=== PATIENT | female | born 1970 | race Caucasian/White ===

== ENCOUNTER 2024-09-08 16:57 | Emergency (ER) | payer OTHER, SELFPAY ==
--- NOTE | ~2024-09-08 | XR_ITS ---
CHEST RADIOGRAPH CLINICAL HISTORY: cough x1 week . COMPARISON: None available TECHNIQUE: Single portable view of the chest. FINDINGS The cardiomediastinal silhouette is unremarkable. The lungs are clear. Visualized osseous structures and soft tissues are unremarkable. IMPRESSION: No focal infiltrate or effusion. Reviewed, dictated and finalized at location A. IZATION REVIEW RN
[2024-09-08 17:38] VITALS: BP 147/94; PULSE 80; RESP 18; TEMP 36.6; O2SAT 100
--- NOTE | 2024-09-08 17:39 | PC.NURSE ---
covid culture sent to lab
[2024-09-08 18:15] LABS: Influenza A QL RT-PCR Positive (Negative); Influenza B QL RT-PCR Negative (Negative); RSV RNA, RT-PCR Negative (Negative); SARS-CoV-2 RNA PCR Negative (Negative)
--- OUTSIDE RECORDS SUMMARY | 2024-09-08 18:17 | XMS_ITS | Clinical Summary ---
Author Organization [facility] Address [address] [place] [id number] Care Team Providers Care Tar Man Name Role Phone Carmela Blanca MD Primary Care Provider + Allergies No known active allergies Medications Medication Sig Dispensed Refills Start Date End Date Status CALCIUM CITRATE-VITAMIN D PO Take 1,500 mg by mouth. Active VITAMIN D, CHOLECALCIFEROL, PO Take 2,000 mg by mouth. Active Active Problems No known active problems Immunizations Name Administration Dates Next Due Influenza, MDCK, quadrivalent, PF 06/03/2021 Influenza, split virus, quadrivalent, PF 020 Influenza, split virus, trivalent 06/03/2021 Tdap 03/08/2020 Tuberculin Skin Test Unspecified Formulation Medical History Medical History Date Comments Malignant neoplasm (CMD) Osteopenia Skin cancer Family History Medical History Relation Comments Diabetes Father Hypertension Father Cancer Mother Relation Status Comments Father Alive Mother Alive Social History Tobacco Use Types Packs/Day Years Used Date Smoking Tobacco: Never Smokeless Tobacco: Never Inadequate Housing Answer Date Recorded Social Determinants: Housing (Overall Score Help er) 0 06/07/2021 Sex and Gender Information Value Date Recorded Sex Assigned at Not on file Gender Identity Not on file Sexual Orientation Not on file Obstetrics History Last Filed Vital Signs Vital Sign Reading Time Taken Comments Blood Pressure 110/70 06/07/2021 4:59 PM DOPE SPRAYER Pulse 70 06/07/2021 4:59 PM DOPE SPRAYER Temperature 37.2 C (98.9 F) 06/07/2021 4:59 PM DOPE SPRAYER Respiratory Rate 16 06/07/2021 4:59 PM DOPE SPRAYER Oxygen Saturation 100% 06/07/2021 4:59 PM DOPE SPRAYER Inhaled Oxygen Concentration - - Weight 90.5 kg (199 lb 6.5 oz) 06/07/2021 4:59 P M DOPE SPRAYER Height 172.7 cm (5' 8 ) 06/07/2021 4:59 PM DOPE SPRAYER Body Mass Index 30.32 06/07/2021 4:59 PM DOPE SPRAYER Plan of Treatment Health Maintenance Due Date Last Done Comments Depression Screening 1980 Hepatitis B Vaccine (1 of 3 - 19+ 3-dose series) 12/28/1987 Breast Cancer Screening 2008 CT Colonography 2013 Cologuard 2013 Colonoscopy 2013 Colorectal Cancer Screen 2013 Fecal Occult Blood 2013 Sigmoidoscopy 2013 Pneumococcal Vaccine 50+ (1 of 1 - PCV) 2018 Shingles Vaccine (1 of 2) 2018 COVID-19 Vaccine (2023-2 5 season) 2024 06/03/2021, 09/08/2020, 08/18/2020 Influenza Vaccine (#1) 2024 , 06/03/2021, 03/08/2020 DTaP/Tdap/Td Vaccine (2 - Td or Tdap) 03/08/2030 03/08/2020 HPV Vaccine Aged Out No longer eligi ble based on patient's age to complete this topic Hepatitis A Vaccine Aged Out No longe r eligible based on patient's age to complete this topic Meningococcal Serogroup B Vaccine Aged Out No longer eligible b ased on patient's age to complete this topic Meningococcal Vaccine Aged Out No madan riccardo eligible based on patient's age to complete this topic Pneumococcal Vaccine 0-49 Aged Out No longer eligible based on patient's age to complete this topic Care Teams Tar Man Relationship Specialty Start Date End Date Carmela Blanca MD [address] [place] [address] [facility] - General 06/07/21
--- OUTSIDE RECORDS SUMMARY | 2024-09-08 18:17 | XMS_ITS | Patient Health Summary ---
Author Organization [facility] [employer] Address [address] [address] Care Team Providers Care Frame Polisher Name Role Phone April Reynoso DO Primary Care Provider [phone] Note from [facility],non-owned Affiliates and Associated Physician Practices is amultiple site organization consisting of ambulatory clinics and hospital sitesin [place], [place], [place] and [place]. This disclosure is being madepursuant to the Care Everywhere program and may not contain all information available regarding this patient. Last updated 18.[facility] [employer] Social History Tobacco Use Types Packs/Day Years Used Date Smoking Tobacco: Never Assessed Sex and Gender Information Value Date Recorded Sex Assigned at Not on file Gender Identity Not on file Sexual Orientation Not on file Procedures * BILIRUBIN DIRECT(Performed 07/02/2023) Performed for Need for prophylactic chemotherapy * CBC W AUTO DIFFERENTIAL(Performed 07/02/2023) Performed for Need for prophylactic chemotherapy * COMPREHENSIVE METABOLIC PANEL(Performed 07/02/2023) Performed for Need for prophylactic chemotherapy * HIV-1 HIV-2 ANTIBODY + HIV P24 AG PANEL(Performed 07/02/2023) Performed for Need for prophylactic chemotherapy * HEPATITIS B CORE ANTIBODY IGM(Performed 07/02/2023) Performed for Need for prophylactic chemotherapy * HEPATITIS B SURFACE ANTIGEN W RFLX CONFIRMATION(Performed 07/02/2023) Performed for Need for prophylactic chemotherapy * QUANTIFERON-TB GOLD PLUS 4-TUBE(Performed 07/02/2023) Performed for Need for prophylactic chemotherapy * HEPATITIS C ANTIBODY(Performed 07/02/2023) Performed for Need for prophylactic chemotherapy Results * QUANTIFERON-TB GOLD PLUS 4-TUBE (07/02/2023 11:19 AM SYSTEMS SPECIALIST) QuantiFERON NIL 0.02 IU/mL 9:42 AM [facility] [employer] ([facility]) Comment: Performed By: [employer] [address] [place] [address] Commercial Sales Consultant: Nathan Sanchez MD, PhD CLIA Number: [id number] QuantiFERON TB Gold Plus Negative Negative 07/05/2023 9:42 AM [facility] [employer] ([facility]) Comment: Interpretive Data: Quantiferon TB Gold Plus Interferon gamma release is measured for specimens from each of the four collection tubes. A qualitative result (Negative, Positive, or Indeterminate) is based on interpretation of the four values, NIL, MITOGEN minus NIL (MITOGEN-NIL), TB1 minus NIL (TB1-NIL), and TB2 minus NIL (TB2-NIL). The NIL value represents nonspecific reactivity produced by the patient specimen. The MITOGEN-NIL value serves as the positive control for the patient specimen, demonstrating successful lymphocyte activity. The TB1-NIL tube specifically detects CD4+ lymphocyte reactivity, specifically stimulated by the TB1 antigens. The TB2-NIL tube detects both CD4+ and CD8+ lymphocyte reactivity, stimulated by TB2 antigens. An overall Negative result does not completely rule out TB infection. A false-positive result in the absence of other clinical evidence of TB infection is not uncommon. Refer to: Updated Guidelines for Using Interferon Gamma Release Assays to Detect Mycobacterium tuberculosis Infection --- [place], 2010 (http://www.cdc.gov/mmwr/preview/mmwrhtml/ny1009v1.htm), for more information concerning test performance in low-prevalence populations and use in occupational screening. QuantiFERON Plus TB1 Minus NIL 0.05 0.00 - 0.34 IU/mL 07/05/2023 9:42 AM SYSTEMS SPECIALIST [employer] ([facility]) QuantiFERON Plus TB2 Minus NIL 0.05 0.00 - 0.34 IU/mL 07/05/2023 9:42 AM SYSTEMS SPECIALIST [employer] ([facility]) QuantiFERON Mitogen Minus NIL >10.00 IU/mL 07/05/2023 9:42 AM SYSTEMS SPECIALIST [facility]) Blood BLOOD SPECIMEN / Unknown Lab Venipuncture / Unknown 07/02/2023 11:19 AM SYSTEMS SPECIALIST 07/02/2023 11:27 AM SYSTEMS SPECIALIST Grace Beth Aline PHILOSOPHY FACULTY-REFINISH TECHNICIAN LAB - CHEMISTR Y ORDERABLES [facility] ([facility]) [address] [place], [place] [address] * HIV 1 & HIV 2 ANTIBODY (IN HOUSE) (07/02/2023 11:19 AM SYSTEMS SPECIALIST) Pathologist [facility] HIV1/2 Ab + P24 Ag NON-REACTI VE/NEGATIV E NON-REACTI VE/NEGATIV E 07/02/2023 12:23 PM SYSTEMS SPECIALIST [facility] Blood BLOOD SPECIMEN / Unknown Lab Venipuncture / Unknown 07/02/2023 11:19 AM SYSTEMS SPECIALIST 07/02/2023 11:27 AM SYSTEMS SPECIALIST Grace Beth Aline PHILOSOPHY FACULTY-REFINISH TECHNICIAN LAB - CHEMISTR Y ORDERABLES Performing Organization Address City/[facility]/ZIP Co de Phone Number [facility] [address] [place] [address] * CBC WITH DIFFERENTIAL (07/02/2023 11:19 AM SYSTEMS SPECIALIST) Pathologist [facility] WBC 5.8 4.0 - 10.0 x10E9/L 07/02/2023 11:38 AM [facility] RBC 4.44 3.93 - 5.22 x10E12/L 07/02/2023 11:38 AM [facility] Hemoglobin 13.3 11.2 - 15.7 gm/dL 07/02/2023 11:38 AM [facility] Hematocrit 41.1 34.1 - 44.9 % 07/02/2023 11:38 AM [facility] MCV 92.6 78.0 - 100.0 fl 07/02/2023 11:38 AM [facility] MCH 30.0 25.6 - 34.0 pg 07/02/2023 11:38 AM [facility] MCHC 32.4 32.3 - 36.5 gm/dL 07/02/2023 11:38 AM [facility] RDW 12.7 11.6 - 14.4 % 07/02/2023 11:38 AM [facility] MPV 9.5 9.4 - 12.4 fl 07/02/2023 11:38 AM [facility] Platelet Count 300 163 - 369 x10E9/L 07/02/2023 11:38 AM [facility] Neutrophils % 48.5 40.0 - 75.0 % 07/02/2023 11:38 AM [facility] Lymphocytes % 40.9 19.3 - 53.1 % 07/02/2023 11:38 AM [facility] Monocytes % 6.0 4.7 - 12.5 % 07/02/2023 11:38 AM [facility] Eosinophils % 3.6 0.7 - 7.0 % 07/02/2023 11:38 AM [facility] Basophils % 0.7 0.1 - 1.2 % 07/02/2023 11:38 AM [facility] Immature Granulocytes 0.3 0 - 0.5 % 07/02/2023 11:38 AM [facility] Neutrophil Absolute 2.83 1.56 - 6.13 x10E9/L 07/02/2023 11:38 AM [facility] Lymphocytes Absolute 2.39 1.18 - 3.74 x10E9/L 07/02/2023 11:38 AM [facility] Monocytes Absolute 0.35 0.24 - 0.86 x10E9/L 07/02/2023 11:38 AM [facility] Eosinophils Absolute 0.21 0.04 - 0.54 x10E9/L 07/02/2023 11:38 AM [facility] Basophils Absolute 0.04 0.01 - 0.08 x10E9/L 07/02/2023 11:38 AM [facility] Immature Granulocytes Absolute 0.02 0 - 0.03 x10E9/L 07/02/2023 11:38 AM [facility] nRBC Auto 0 <=0 /100 WBC 07/02/2023 11:38 AM [facility] nRBC Absolute 0.00 <=0 x10E9/L 07/02/2023 11:38 AM [facility] Blood BLOOD SPECIMEN / Unknown Lab Venipuncture / Unknown 07/02/2023 11:19 AM SYSTEMS SPECIALIST 07/02/2023 11:27 AM [facility] Grace Mireles PHILOSOPHY FACULTY-REFINISH TECHNICIAN LAB - HEMATOLO GY ORDERABLES [facility] [address], [place] [id number] [place] [address] * (ABNORMAL) COMPREHENSIVE METABOLIC PANEL (07/02/2023 11:19 AM [facility]) [facility] Signature Glucose 108 70 - 125 mg/dL 07/02/2023 11:52 AM [facility] Sodium 141 136 - 145 mmol/L 07/02/2023 11:52 AM [facility] Potassium 4.0 3.4 - 5.1 mmol/L 07/02/2023 11:52 AM [facility] Chloride 107 98 - 107 mmol/L 07/02/2023 11:52 AM [facility] CO2 28 22 - 29 mmol/L 07/02/2023 11:52 AM [facility] Calcium 9.65 8.4 - 10.2 mg/dL 07/02/2023 11:52 AM [facility] Anion Gap 10 6 - 16 mmol/L 07/02/2023 11:52 AM [facility] BUN 7.8(L) 9.8 - 20.1 mg/dL 07/02/2023 11:52 AM [facility] Creatinine 0.65 0.57 - 1.11 mg/dL 07/02/2023 11:52 AM [facility] Alkaline Phosphatase 105 40 - 150 U/L 07/02/2023 11:52 AM [facility] ALT 81(H) <=55 U/L 07/02/2023 11:52 AM [facility] AST 51(H) 5 - 34 U/L 07/02/2023 11:52 AM [facility] Protein Total 7.1 6.4 - 8.3 gm/dL 07/02/2023 11:52 AM [facility] Albumin 3.8 3.4 - 4.8 gm/dL 07/02/2023 11:52 AM [facility] Globulin Total 3.3 2.6 - 4.0 gm/dL 07/02/2023 11:52 AM [facility] Albumin/Globulin Ratio 1.2 0.9 - 1.6 07/02/2023 11:52 AM [facility] Bilirubin Total 0.4 0.2 - 1.2 mg/dL 07/02/2023 11:52 AM [facility] eGFR >90 >90 mL/min/1.7 3m2 07/02/2023 11:52 AM SYSTEMS SPECIALIST [facility] Comment:The GFR result was c alculated using the updated CKD-EPI Creatinine Equation (2020). Blood BLOOD SPECIMEN / Unknown Lab Venipuncture / Unknown 07/02/2023 11:19 AM SYSTEMS SPECIALIST 07/02/2023 11:27 AM SYSTEMS SPECIALIST Grace Mireles PHILOSOPHY FACULTY-REFINISH TECHNICIAN LAB - CHEMISTR Y ORDERABLES Performing Organization Address City/[facility] Co de Phone Number [facility] [address] [place] [address] * HEPATITIS B SURFACE ANTIGEN W RFLX CONFIRMATION (07/02/2023 11:19 AM SYSTEMS SPECIALIST) HBsAg Non Reactive Non Reactive 07/02/2023 3:06 PM SYSTEMS SPECIALIST [facility] Blood BLOOD SPECIMEN / Unknown Lab Venipuncture / Unknown 07/02/2023 11:19 AM SYSTEMS SPECIALIST 07/02/2023 11:27 AM SYSTEMS SPECIALIST Grace Mireles PHILOSOPHY FACULTY-REFINISH TECHNICIAN LAB - CHEMISTR Y ORDERABLES Performing Organization Address [facility] Co de Phone Number [facility] [address] * BILIRUBIN DIRECT (07/02/2023 11:19 AM SYSTEMS SPECIALIST) Bilirubin Direct 0.14 <=0.5 mg/dL 07/02/2023 11:52 AM SYSTEMS SPECIALIST [facility] Blood BLOOD SPECIMEN / Unknown Lab Venipuncture / Unknown 07/02/2023 11:19 AM SYSTEMS SPECIALIST 07/02/2023 11:27 AM SYSTEMS SPECIALIST Grace Mireles PHILOSOPHY FACULTY-REFINISH TECHNICIAN LAB - CHEMISTR Y ORDERABLES Performing Organization Address [facility] de Phone Number [facility] [address] [place] [address] * HEPATITIS C ANTIBODY (07/02/2023 11:19 AM SYSTEMS SPECIALIST) HCV Antibody Screen Non Reactive Non Reactive 07/02/2023 3:06 PM SYSTEMS SPECIALIST [facility] Blood BLOOD SPECIMEN / Unknown Lab Venipuncture / Unknown 07/02/2023 11:19 AM SYSTEMS SPECIALIST 07/02/2023 11:27 AM SYSTEMS SPECIALIST Narrative [facility] - 07/02/2023 3:06 PM SYSTEMS SPECIALIST Non Reactive - Antibodies to Hepatitis C virus (HCV) were not detected, result does not exclude early acute HCV infection. Non Reactive - Antibodies to Hepatitis C virus (HCV) were not detected, result does not exclude early acute HCV infection. Grace Mireles PHILOSOPHY FACULTY-REFINISH TECHNICIAN LAB - CHEMISTR Y ORDERABLES Performing Organization Address City/[facility]/ZIP Co de Phone Number [facility] [address] * HEPATITIS B CORE ANTIBODY IGM (07/02/2023 11:19 AM SYSTEMS SPECIALIST) [facility] HBc Antibody IgM Non Reactive Non Reactive 07/02/2023 3:06 PM SYSTEMS SPECIALIST [facility] Blood BLOOD SPECIMEN / Unknown Lab Venipuncture / Unknown 07/02/2023 11:19 AM SYSTEMS SPECIALIST 07/02/2023 11:27 AM SYSTEMS SPECIALIST Grace Mireles PHILOSOPHY FACULTY-REFINISH TECHNICIAN LAB - CHEMISTR Y ORDERABLES Performing Organization Address [facility] Co de Phone Number [facility] [address] Care Teams Frame Polisher Relationship Specialty Start Date End Date April Reynoso DO PCP - General Family Medicine 07/02/23
--- OUTSIDE RECORDS SUMMARY | 2024-09-08 18:17 | XMS_ITS ---
Author Organization [facility] Address [address] [place] [address] Care Team Providers Care Manager Demand Name Role Phone Unavailable Unavailable Unavailable Surgery Details Not on file Complications Check Surgery Details section. Procedure Estimated Blood Loss Check Surgery Details section. Procedure Findings Check Surgery Details section. Procedure Specimens Taken Check Surgery Details section.
--- OUTSIDE RECORDS SUMMARY | 2024-09-08 18:17 | XMS_ITS | CCD ---
Author Organization [facility] Address [address] [place] [address] Care Team Providers Care Packaging Clerk Name Role Phone Unavailable Primary Care Provider Unavailabl e Social History Tobacco Use Types Packs/Day Years Used Date Smoking Tobacco: Never Assessed Comments Unknown Sex and Gender Information Value Date Recorded Sex Assigned at Not on file Legal Sex Unknown 11/30/2020 8:52 PM PDT Gender Identity Not on file Sexual Orientation Not on file Plan of Treatment Not on file
--- OUTSIDE RECORDS SUMMARY | 2024-09-08 18:17 | XMS_ITS | Referral Summary ---
Author Organization [facility] Address [address] [place] [address] Care Team Providers Care Highway Maintainer Name Role Phone Carmela Blanca MD Primary [...] Tdap 03/08/2020 Tuberculin Skin Test Unspecified Formulation Social History Tobacco Use Types Packs/Day Years Used Date Smoking Tobacco: Never Smokeless Tobacco: Never Inadequate Housing Answer Date Recorded Social Determinants: Housing (Overall Score Help er) 0 06/07/2021 Sex and Gender Information Value Date Recorded Sex Assigned at Not on file Gender Identity Not on file Sexual Orientation Not on file Last Filed Vital Signs Vital Sign Reading Time Taken Comments Blood Pressure 110/70 06/07/2021 4:59 PM CONTRACTS LAW PROFESSOR Pulse 70 06/07/2021 4:59 PM CONTRACTS LAW PROFESSOR Temperature 37.2 C (98.9 F) 06/07/2021 4:59 PM CONTRACTS LAW PROFESSOR Respiratory Rate 16 06/07/2021 4:59 PM CONTRACTS LAW PROFESSOR Oxygen Saturation 100% 06/07/2021 4:59 PM CONTRACTS LAW PROFESSOR Inhaled Oxygen Concentration - - Weight 90.5 kg (199 lb 6.5 oz) 06/07/2021 4:59 P M CONTRACTS LAW PROFESSOR Height 172.7 cm (5' 8 ) 06/07/2021 4:59 PM CONTRACTS LAW PROFESSOR Body Mass Index 30.32 06/07/2021 4:59 PM CONTRACTS LAW PROFESSOR Plan of Treatment Not on file Care Teams Highway Maintainer Relationship Specialty Start Date End Date Carmela Blacna MD [address] [place] [address] PCP - General 06/07/21
--- OUTSIDE RECORDS SUMMARY | 2024-09-08 18:17 | XMS_ITS | Clinical Summary ---
Author Organization [facility] Address [address] [place] [address] Care Team Providers Care Gluer And Slicer Hand Name Role Phone Unavailable Primary Care Provider [...]
--- OUTSIDE RECORDS SUMMARY | 2024-09-08 18:17 | XMS_ITS | Referral Summary ---
Author Organization [facility] Address [address] [place] [address] Care Team Providers Care Entry Driver Operator Name Role Phone Unavailable Primary Care Provider [...]
--- OUTSIDE RECORDS SUMMARY | 2024-09-08 18:17 | XMS_ITS | Encounter Summary ---
Author Organization [facility] [place] [address] [place] [address] Care Team Providers Care Supply Chain Planner Name Role Phone Unavailable Primary Care Provider Unavailabl e Prior Encounters Date Type Department Care Team Description 08/18/2019 Converted 13x Documents [facility] [address], [address] [place] [address] <No scans attached> 08/18/2019 Converted 13x Documents [facility] [address], [address] [place] [address] <No scans attached> 08/18/2019 Converted CPS Chart Documents [facility] [address], [address] [place] [address] <No scans attached> 08/18/2019 Converted CPS Chart Documents [facility] [address] , [facility] [address] [place] [address] <No scans attached> 08/18/2019 Converted 13x Documents [facility] [address] , [facility] [address] [place] [address] <No scans attached> Plan of Treatment Not on file Procedures Procedure Name Priority Date/Time Associated Diagnosis Comments PLAN VISIT FEE Routine 02/25/2014 2:00 AM CDT 30 EXTRACTION, ERUPTED TOOTH REQUIRING REMOVAL OF BONE AND/OR SECTIONING OF TOOTH Routine 02/17/2014 2:00 AM CDT 15 EXTRACTION, ERUPTED TOOTH REQUIRING REMOVAL OF BONE AND/OR SECTIONING OF TOOTH Routine 02/17/2014 2:00 AM CDT 29 DO COMPOSITE FILLING Routine 02/18/20 14 2:00 AM CDT LIMITED ORAL EVALUATION - PROBLEM FOCUSED Routine 02/09/2014 2:00 AM CDT 30 INTERNAL ROOT REPAIR OF PERFORATION DEFECTS Routine 02/06/2014 2:00 AM CDT 30 RETREATMENT OF PREVIOUS ROOT CANAL THERAPY - MOLAR Routine 02/06/2014 2:00 AM CDT 30 POST REMOVAL Routine 02/06/2014 2:00 AM CDT 30 PULP VITALITY TESTS Routine 4 2:00 AM CDT 14 CEMENT CROWN Routine 02/03/2014 2:00 AM CDT 13 CEMENT CROWN Routine 02/03/2014 2:00 AM CDT 12 CEMENT CROWN Routine 02/03/2014 2:00 AM CDT 11 CEMENT CROWN Routine 02/03/2014 2:00 AM CDT ADDITIONAL X-RAY Routine 02/03/2014 2:00 AM CDT SINGLE X-RAY Routine 02/03/2014 2:00 AM CDT PLAN VISIT FEE Routine 02/03/2014 2:00 AM CDT CANCELLED APPOINTMENT Routine 01/26/2014 2:00 AM CDT 11 [facility] MADE CROWN ANT Routine 01/15/2014 2:00 AM CDT 13 PONTIC - PFG - POST Routine 4 2:00 AM CDT 14 RETAINER CROWN - PFG - POST Routine 01/15/2014 2:00 AM CDT 12 RETAINER CROWN - PFG - POST Routine 01/15/2014 2:00 AM CDT 11 PREFABRICATED POST AND CORE IN ADDITION TO CROWN Routine 01/15/2014 2:00 AM CDT 14 CORE BUILDUP, INCLUDING ANY PINS WHEN REQUIRED Routine 01/15/2014 2:00 AM CDT 12 CORE BUILDUP, INCLUDING ANY PINS WHEN REQUIRED Routine 01/15/2014 2:00 AM CDT 14 PORC MARGIN UPGRADE Routine 4 2:00 AM CDT ADDITIONAL X-RAY Routine 01/15/2014 2:00 AM CDT SINGLE X-RAY Routine 01/15/2014 2:00 AM CDT 18 CEMENT CROWN Routine 12/24/2013 2:00 AM CDT ADDITIONAL X-RAY Routine 12/24/2013 2:00 AM CDT SINGLE X-RAY Routine 12/24/2013 2:00 AM CDT 18 CORE BUILDUP, INCLUDING ANY PINS WHEN REQUIRED Routine 12/02/2013 2:00 AM CDT 18 CROWN PFG POST Routine 12/02/2013 2:0 0 AM CDT 18 PORC MARGIN UPGRADE Routine 4 2:00 AM CDT 20 DO COMPOSITE FILLING Routine 12/03/19 14 2:00 AM CDT 21 O COMPOSITE FILLING Routine 4 2:00 AM CDT 4 LIMITED ORAL EVALUATION - PROBLEM FOCUSED Routine 11/20/2013 2:00 AM CDT ADDITIONAL X-RAY Routine 11/17/2013 2:00 AM CDT SINGLE X-RAY Routine 11/17/2013 2:00 AM CDT 4 PONTIC - PFG - POST Routine 10/27/2013 2:00 AM CDT 3 PONTIC - PFG - POST Routine 10/27/2013 2:00 AM CDT 5 RETAINER CROWN - PFG - POST Routine 10/27/2013 2:00 AM CDT 2 RETAINER CROWN - PFG - POST Routine 10/27/2013 2:00 AM CDT 2 CORE BUILDUP, INCLUDING ANY PINS WHEN REQUIRED Routine 10/27/2013 2:00 AM CDT 2 ENDODONTIC THERAPY, MOLAR TOOTH (EXCLUDING FINAL ADVENTISM) Routine 10/27/2013 2:00 AM CDT 5 CORE BUILDUP, INCLUDING ANY PINS WHEN REQUIRED Routine 10/27/2013 2:00 AM CDT CANCELLED APPOINTMENT Routine 11/04/2012 2:00 AM CDT ORAL HYGIENE INSTRUCTIONS Routine 2012 2:00 AM CDT PROPHYLAXIS - ADULT Routine 10/28/2012 2 :00 AM CDT COMPREHENSIVE ORAL EVALUATION - NEW OR ESTABLISHED PATIENT Routine 10/11/2012 2:00 AM CDT PANORAMIC RADIOGRAPHIC IMAGE Routine 10/11/2012 2:00 AM CDT INTRAORAL - COMPREHENSIVE SERIES OF RADIOGRAPHIC IMAGES Routine 10/11/2012 2:00 AM CDT INTRAORAL PHOTO Routine 10/11/2012 2:00 AM CDT INTRAORAL PHOTO Routine 10/11/2012 2:00 AM CDT INTRAORAL PHOTO Routine 10/11/2012 2:00 AM CDT INTRAORAL PHOTO Routine 10/11/2012 2:00 AM CDT Visit Diagnoses Not on file
--- OUTSIDE RECORDS SUMMARY | 2024-09-08 18:17 | XMS_ITS | Referral Summary ---
Author Organization [facility] [employer] [employer] Address [address] [place] [address] Care Team Providers Care Window Glazier Name Role Phone April Reynoso DO Primary Care Provider [phone] Source Comments [facility],non-owned Affiliates and Associated Physician Practices is amultiple site organization consisting of ambulatory clinics and hospital sitesin [place], [place], [place] and [place]. This disclosure is being madepursuant to the Care Everywhere program and may not contain all information available regarding this patient. Last updated 18.[facility] [employer] Social History Tobacco Use Types Packs/Day Years Used Date Smoking Tobacco: Never Assessed Sex and Gender Information Value Date Recorded Sex Assigned at Not on file Gender Identity Not on file Sexual Orientation Not on file Plan of Treatment Not on file Procedures Procedure Name Priority Date/Time Associated Diagnosis Comments HEPATITIS C ANTIBODY Routine 07/02/2023 11:19 AM PEER SUPPORT SPECIALIST Need for prophylactic chemotherapy HIV-1 HIV-2 ANTIBODY + HIV P24 AG PANEL Routine 07/02/2023 11:19 AM PEER SUPPORT SPECIALIST Need for prophylactic chemotherapy from Last 3 Months or Most Recently Relevant to Health Maintenance Results * HIV 1 & HIV 2 ANTIBODY (IN HOUSE) (07/02/2023 11:19 AM PEER SUPPORT SPECIALIST) HIV1/2 Ab + P24 Ag NON-REACTI VE/NEGATIV E NON-REACTI VE/NEGATIV E 07/02/2023 12:23 PM PEER SUPPORT SPECIALIST [facility] Blood BLOOD SPECIMEN / Unknown Lab Venipuncture / Unknown 07/02/2023 11:19 AM PEER SUPPORT SPECIALIST 07/02/2023 11:27 AM PEER SUPPORT SPECIALIST Grace Mireles MANAGER FLORAL-ACADEMIC ADVISOR LAB - CHEMISTR Y ORDERABLES [facility] [address] * HEPATITIS C ANTIBODY (07/02/2023 11:19 AM PEER SUPPORT SPECIALIST) HCV Antibody Screen Non Reactive Non Reactive 07/02/2023 3:06 PM PEER SUPPORT SPECIALIST [facility] Blood BLOOD SPECIMEN / Unknown Lab Venipuncture / Unknown 07/02/2023 11:19 AM PEER SUPPORT SPECIALIST 07/02/2023 11:27 AM PEER SUPPORT SPECIALIST Narrative [facility] - 07/02/2023 3:06 PM PEER SUPPORT SPECIALIST Non Reactive - Antibodies to Hepatitis C virus (HCV) were not detected, result does not exclude early acute HCV infection. Non Reactive - Antibodies to Hepatitis C virus (HCV) were not detected, result does not exclude early acute HCV infection. Grace Mireles MANAGER FLORAL-ACADEMIC ADVISOR LAB - CHEMISTR Y ORDERABLES Performing Organization Address City/[facility]/ZIP Co de Phone Number [facility] [address] from Last 3 Months or Most Recently Relevant to Health Maintenance Care Teams Window Glazier Relationship Specialty Start Date End Date April Reynoso DO PCP - General Family Medicine 07/02/23
--- OUTSIDE RECORDS SUMMARY | 2024-09-08 18:17 | XMS_ITS | Clinical Summary ---
Author Organization [facility] Address [address] [place] [address] Care Team Providers Care Molding Associate Name Role Phone April Reynoso DO Primary Care Provider [phone] Source Comments [facility],non-owned Affiliates and Associated Physician Practices is amultiple site organization consisting of ambulatory clinics and hospital sitesin [place], [place], [place] and [place]. This disclosure is being madepursuant to the Care Everywhere program and may not contain all information available regarding this patient. Last updated 18.[facility] Social History Tobacco Use Types Packs/Day Years Used Date Smoking Tobacco: Never Assessed Sex and Gender Information Value Date Recorded Sex Assigned at Not on file Gender Identity Not on file Sexual Orientation Not on file Plan of Treatment Health Maintenance Due Date Last Done Comments COLOGUARD (AGES 45-75) - COL ON CA SCREENING 1968 COLON MONITORING 1968 COLONOSCOPY - COLON CA SCREENING 1968 CT COLONOGRAPHY - COLON CA SCREENING 1968 Colorectal Cancer Screening 1968 FIT - COLON CA SCREENING 1968 FLEX SIG - COLON CA SCREENING 1968 LIPID TESTING 1968 MAMMOGRAM 1968 PAP SMEAR 1968 DTAP/TDAP/TD VACCINES (1 - Tdap) 12/28/1987 HEPATITIS B VACCINE (1 of 3 - 19+ 3-dose series) 12/28/1987 PNEUMOCOCCAL VACCINE 50+ (1 of 1 - PCV) 2018 ZOSTER VACCINE (1 of 2) 2018 COVID-19 VACCINE ( - 2023-2 5 season) 2024 06/03/2021, 09/08/2020, 08/18/2020 INFLUENZA VACCINE (#1) 2024 1, 03/08/2020 DEPRESSION SCREENING 07/30/2024 HEPATITIS C SCREENING Completed 07/02/2023 HIV SCREENING Completed 07/02/2023 HIB VACCINE Aged Out No longer eligi ble based on patient's age to complete this topic HPV VACCINE Aged Out No longer eligi ble based on patient's age to complete this topic MENINGOCOCCAL (Group B) VACCINE Aged Out No longer eligible b ased on patient's age to complete this topic MENINGOCOCCAL VACCINE Aged Out No madan riccardo eligible based on patient's age to complete this topic PNEUMOCOCCAL VACCINE Aged Out No long er eligible based on patient's age to complete this topic Procedures Procedure Name Priority Date/Time Associated Diagnosis Comments HEPATITIS C ANTIBODY Routine 07/02/2023 11:19 AM BIOSTATISTICIAN Need for prophylactic chemotherapy HIV-1 HIV-2 ANTIBODY + HIV P24 AG PANEL Routine 07/02/2023 11:19 AM BIOSTATISTICIAN Need for prophylactic chemotherapy from Last 3 Months or Most Recently Relevant to Health Maintenance Results * HIV 1 & HIV 2 ANTIBODY (IN HOUSE) (07/02/2023 11:19 AM BIOSTATISTICIAN) HIV1/2 Ab + P24 Ag NON-REACTI VE/NEGATIV E NON-REACTI VE/NEGATIV E 07/02/2023 12:23 PM BIOSTATISTICIAN [facility] Blood BLOOD SPECIMEN / Unknown Lab Venipuncture / Unknown 07/02/2023 11:19 AM BIOSTATISTICIAN 07/02/2023 11:27 AM BIOSTATISTICIAN Grace Mireles SANDWICH HAND-TOASTER ELEMENT REPAIRER LAB - CHEMISTR Y ORDERABLES [facility] [address] * HEPATITIS C ANTIBODY (07/02/2023 11:19 AM BIOSTATISTICIAN) HCV Antibody Screen Non Reactive Non Reactive 07/02/2023 3:06 PM BIOSTATISTICIAN [facility] Blood BLOOD SPECIMEN / Unknown Lab Venipuncture / Unknown 07/02/2023 11:19 AM BIOSTATISTICIAN 07/02/2023 11:27 AM BIOSTATISTICIAN Narrative [facility] - 07/02/2023 3:06 PM BIOSTATISTICIAN Non Reactive - Antibodies to Hepatitis C virus (HCV) were not detected, result does not exclude early acute HCV infection. Non Reactive - Antibodies to Hepatitis C virus (HCV) were not detected, result does not exclude early acute HCV infection. Grace Beth Mireles SANDWICH HAND-TOASTER ELEMENT REPAIRER LAB - CHEMISTR Y ORDERABLES [facility] [address] from Last 3 Months or Most Recently Relevant to Health Maintenance Care Teams Molding Associate Relationship Specialty Start Date End Date April Reynoso DO PCP - General Family Medicine 07/02/23
--- NOTE | 2024-09-08 18:53 | ED.URI ---
HPI - URI/Sore Throat General Chief Complaint: Upper Respiratory Infection Stated Complaint: Flu Symptoms Source: patient Mode of arrival: ambulatory Limitations: no limitations History of Present Illness HPI Narrative: 53 years old white female came to the hospital with upper respiratory viral infection like symptoms started 9 days ago, patient tested negative for flu RSV and rhinovirus early, her symptom got worse over the last 2-3 days. Patient concern about the possibility of pneumonia. History of psoriasis. She denies any chest pain or shortness of breath. Currently productive cough of green yellowish sputum Related Data Allergies Allergy/AdvReac Type Severity Reaction Status Date / Time No Known Allergies Allergy Verified 09/08/24 17:56 Review of Systems Review of Systems: All systems reviewed & are unremarkable except as noted in HPI and below Exam Narrative: General appearance: Well-developed, well-nourished, a raspy voice Skin: Normal color Head: Normocephalic, nontraumatic Eyes: Clear conjunctiva ENT: Oropharynx normal, ears normal, nose normal Neck: Supple, nontender Chest and respiratory: Airway patent, no respiratory distress, no accessory muscle use Heart: Regular rate/rhythm Abdomen: Soft, nontender, no organomegaly, quiet bowel sounds Vascular: Normal peripheral pulses, normal capillary refill. Musculoskeletal: Normal range of motion, nontender back Neurologic: Alert and oriented ?3, PHYSICIAN/ALLERGY/IMMUNOLOGY is normal as tested, no gross motor deficit Course Vital Signs Vital signs: Vital Signs Temperature 36.6 C 09/08/24 17:38 Pulse Rate 80 09/08/24 17:38 Respiratory Rate 18 09/08/24 17:38 Blood Pressure 147/94 H 09/08/24 17:38 Pulse Oximetry 100 09/08/24 17:38 Oxygen Delivery Room Air 09/08/24 17:38 Temperature 36.6 C 09/08/24 17:38 Pulse Rate 80 09/08/24 17:38 Respiratory Rate 18 09/08/24 17:38 Blood Pressure 147/94 H 09/08/24 17:38 Pulse Oximetry 100 09/08/24 17:38 Oxygen Delivery Room Air 09/08/24 17:38 MDM - URI/Sore Throat MDM Narrative Medical decision making narrative: patient presents with upper respiratory viral infection like symptoms Patient tested positive for influenza a, Chest x-ray showed no acute abnormality Patient been sick for roughly 9 days, other viral infection could be a possibility, secondary bacterial infection is a possibility It is difficult to know exactly when the influenza a started. Advised the patient the pain fluid out, discharged on Tamiflu, Z-Ignacio, albuterol and benzonate. Differential Diagnosis Differential diagnosis: Likely other ( As above) Medical Records Attestation: I reviewed the patient's medical records. Lab Data Attestation: I reviewed the patient's lab results. Labs: Lab Results 09/08/24 Range/Units 17:56 Influenza A (RT-PCR) Positive A (Negative) Influenza B (RT-PCR) Negative (Negative) RSV (RT-PCR) Negative (Negative) SARS-CoV-2 RNA (RT-PCR) Negative (Negative) Imaging Data Radiologist's impression: Impressions Chest X-Ray 09/08/24 18:20 IMPRESSION: No focal infiltrate or effusion. Critical Care Time Critical Care Time Critical Care Time: No Discharge Plan Discharge Clinical Impression: Influenza A Patient Disposition: Home, Self-Care Condition: Stable Instructions: Antibiotic Form, Influenza (ED) Additional Instructions: Return if symptoms are worsening , call your family physician for appointment, take Tylenol, ibuprofen as as needed for aches and pain, continue home medications. Patient Language: Indonesian Prescriptions: New azithromycin [Zithromax Z-Ignacio] 250 mg tablet 250 mg PO DAILY PRN (Reason: bronchitis) 5 Days Qty: 6 0RF benzonatate 200 mg capsule 200 mg PO TID PRN (Reason: cough) Qty: 30 0RF albuterol sulfate [Ventolin HFA] 90 mcg/actuation HFA aerosol inhaler 2 puff inhalation QID PRN (Reason: shortness of breath or wheezing) Qty: 8.5 0RF oseltamivir [Tamiflu] 75 mg capsule 75 mg PO BID Qty: 10 0RF Follow-up/Referrals: Edgardo,April [Other] Stand Alone Forms: Work/School Release IP
[2024-09-08 19:00] VITALS: BP 132/80; PULSE 80; RESP 18; TEMP 36.7; O2SAT 100
== END 2024-09-08 19:00 | disposition home or self-care (01) ==
PROVIDERS: Emergency Provider Emergency Medicine
DX: J10.1 Influenza due to other identified influenza virus with other respiratory manifestations (principal); Z20.822 Contact with and (suspected) exposure to COVID-19
CPT/HCPCS: 71045; 87637; 99283